=== PATIENT | male | born 1965 | race Two or more races ===

== ENCOUNTER 2024-12-18 19:22 | Emergency (ER) | payer MEDICAID, SELFPAY ==
[2024-12-18 19:23] VITALS: BMI 35.5
[2024-12-18 19:33] VITALS: BP 173/91; PULSE 72; RESP 20; TEMP 37.3; O2SAT 98
--- NOTE | 2024-12-18 19:45 | PD.EDABDPN ---
ED Abdominal Pain RME/HPI General Chief Complaint: Abdominal Pain Stated complaint: RLQ PAIN Time seen by provider: 12/18/24 19:32 Arrival date/time: 12/18/24 19:22 RME / HPI RME / HPI narrative: This section includes all my notes and documentations, including HPI, PE, and ED course. Davian Obrien MD HPI: 59 y/o male with Hx of nephrolithiasis presents to ED c/o of RLQ abdominal pain x approximately 24 hours. Also reports nausea. Denies any abdominal surgical history. Has tried Naproxen to manage pain once with no relief. No other complaints. ROS: All negative except as documented in HPI. Physical Exam: General: Alert and oriented. In obvious pain. Eyes: Conjunctivae and lids clear. ENT: No nasal congestion. Neck: Supple. Heart: RRR. Lungs: No respiratory distress. Good air movement. No rhonchi, wheezing, rales. Abdomen: Soft and nontender. Normal bowel sounds. No distension. Back: No CVA tenderness. Skin: Warm and dry. Neuro: Alert and oriented X 3. I reviewed all diagnostic test results. My review of the CT report is 5 mm distal right ureterovesical calculus. Blood tests and urine tests remarkable for hematuria. At this point, diagnoses include right ureteral stone. Treatment here included IV fluid, Toradol, Morphine, Zofran, Flomax, and urine strainer. Significant improvement noted. Recommended a trial of outpatient treatment. Based on my best medical judgment, made decision no further evaluation or treatment indicated at this time. Patient understands and agrees to the discharge instructions customized and printed, see below. Discharge Instructions from Dr. Obrien: --Your symptoms are due to a 5 mm right kidney stone. It is outside the kidney. It is trying to pass into your bladder. --Increase oral fluid to flush your kidneys.? Maintain clear urine. if it's dark or yellow then increase oral fluid.? If you don't do this, you won't pass it.? --Take Flomax to help decrease spasms to increase the chance of passing it.? --Take Zofran as needed for nausea or vomiting. --Take Ketorolac/Toradol for pain control.? And Tylenol with Codeine.? If you are in severe pain, you won't pass it.?? --Strain your urine so you can catch the stone when you pass it.? --See a private doctor on 12/21/2024 for recheck. Take the stone with you for analysis because certain stones can be prevented.? If you didn't pass it, ask for referral to see urologist. Who will take the stone out for you. --Seek immediate medical care with fever over 100.4, persistent vomiting despite Zofran, intolerable pain, or with any concerns.?? Davian Obrien MD Related Data Previous Rx's ?Medication ?Instructions ?Recorded ibuprofen 800 mg tablet 800 mg PO TID PRN pain #30 tabs 12/04/17 acetaminophen 300 mg-codeine 30 mg 2 tab PO Q8H PRN pain #20 tabs 12/18/24 tablet ketorolac 10 mg tablet 10 mg PO Q8H PRN pain 5 days #10 12/18/24 tabs ondansetron 4 mg disintegrating 4 mg PO TID PRN nausea and 12/18/24 tablet vomiting 30 days #10 tabs tamsulosin 0.4 mg capsule (Flomax) 0.4 mg PO QDAY 7 days #7 caps 12/18/24 Allergies Allergy/AdvReac Type Severity Reaction Status Date / Time No Known Allergies Allergy Verified 12/04/17 15:52 Review of Systems Review of Systems Systems Reviewed: All systems reviewed, normal except as documented Narrative Review of Systems: Refer to HPI above. Past Medical History Past Medical History GENITOURINARY: Positive Kidney Stones Social History SMOKING STATUS: Never smoker ED Exam Narrative Physical exam: Refer to HPI above. Course Quality Measures none Orders Category Date Time Status Miscellaneous Nursing Order NOW Care 12/18/24 21:24 Completed Saline [Insert IV] NOW Care 12/18/24 19:47 Completed Straight [In and Out Catheter] X1 Care 12/18/24 19:[address] abdomen pelvis wo con Stat Exams 12/18/24 19:48 Completed Amylase Stat Lab 12/18/24 19:57 Completed Bilirubin,Direct Stat Lab 12/18/24 19:57 Completed CBC Stat Lab 12/18/24 19:57 Completed CMP [Comprehensive Metabolic Panel] Stat Lab 12/18/24 19:57 Completed Lipase Stat Lab 12/18/24 19:57 Completed Magnesium Stat Lab 12/18/24 19:57 Completed UA, C/S IF [Urinalysis, C/S if Indicated] Stat Lab 12/18/24 20:50 Completed Ketorolac Inj [Toradol Inj] Med 12/18/24 19:47 Discontinued 15 mg IVP X1 ONE Morphine Inj Med 12/18/24 19:47 Discontinued 6 mg IVP X1 ONE Ondansetron Inj [Zofran Inj] Med 12/18/24 19:47 Discontinued 4 mg IV X1 ONE Sodium Chloride 0.9% 1000 ml [Ns] 1,000 ml Med 12/18/24 19:47 Discontinued IV 999 mls/hr Tamsulosin HCl [Flomax] Med 12/18/24 21:24 Discontinued 0.4 mg PO X1 ONE Vital Signs Vital signs: Vital Signs Temperature 99.1 F 12/18/24 19:33 Pulse Rate 72 12/18/24 19:33 Respiratory Rate 20 12/18/24 19:33 Blood Pressure 173/91 H 12/18/24 19:33 Pulse Oximetry (%) 98 12/18/24 19:33 Oxygen Delivery Method Room Air 12/18/24 19:33 Abdominal Pain MDM MDM Narrative MDM Narrative:: Scribe Attestation: IMaryanne am scribing for and in the presence of Dr. Obrien. Provider Notation: Although this document has been carefully reviewed, there may still be some phonetic and other typographical errors. These errors are purely grammatical due to imperfections in the software program and should not be construed in any way to compromise the substance of the patient's medical care during this visit. 59 y/o male with Hx of nephrolithiasis presents to ED c/o of RLQ abdominal pain x approximately 24 hours. Also reports nausea. Denies any abdominal surgical history. Has tried Naproxen to manage pain once with no relief. Patient data External records reviewed:: [facility] previous records (No recent ED records to review.) Clinical information provided by:: patient Social determinants that could affect healthcare access:: none Patient has the following chronic illnesses:: nephrolithiasis How is presenting disease/condition affected by chronic disease/condition?: exacerbated by Evaluation data The following diagnostics were reviewed and interpreted by me:: lab results and radiology exam(s) Lab and/or radiology exams considered but not ordered:: None Interpretation Summary: Abdominopelvis CT shows Mild right hydronephrosis secondary to 5 mm distal right ureterovesical calculus. Medications / Prescriptions Medications or Prescriptions considered but not ordered:: None Medication administrations:: Medication Administration History Discontinued Medications Sodium Chloride (Ns) 1,000 mls @ 999 mls/hr IV .Q1H1M ONE Stop: 12/18/24 20:47 Last Infusion: 12/18/24 22:00 Dose: Infused Documented By: Admin: 12/18/24 20:08 Dose: 999 mls/hr Documented By: EF Ketorolac Tromethamine (Ketorolac Inj 30 Mg/Ml Vial) 15 mg IVP X1 ONE Stop: 12/18/24 19:48 Last Admin: 12/18/24 20:08 Dose: 15 mg Documented By: EF Morphine Sulfate (Morphine Sulf Inj 10 Mg/Ml Vial) 6 mg IVP X1 ONE Stop: 12/18/24 19:48 Last Admin: 12/18/24 20:09 Dose: 6 mg Documented By: EF Ondansetron HCl (Ondansetron Inj 2 Mg/Ml Inj 2 Ml) 4 mg IV X1 ONE; Protocol Stop: 12/18/24 19:48 Last Admin: 12/18/24 20:09 Dose: 4 mg Documented By: EF Tamsulosin HCl (Tamsulosin Hcl 0.4 Mg Capsule) 0.4 mg PO X1 ONE Stop: 12/18/24 21:25 Last Admin: 12/18/24 22:08 Dose: 0.4 mg Documented By: MD [place], Sodium Chloride (Ns), Morphine, Toradol, Tamsulosin HCl Consultations Consultation(s) initiated? (list below): No Diagnosis Differential diagnosis abdominal pain: abdominal pain, acute appendicitis, calculus of kidney, constipation, diverticulitis, gastroenteritis, pancreatitis, small bowel obstruction and other (UTI, pyelonephritis, ureteral stone) Most likely diagnosis given after review of the tests above:: Kidney stone Admission Indicated Admission indicated?: not indicated Explain why admission is indicated or not indicated:: With significant improvement, there was no indication for admission. Admission Request Was there a request for admission?: No Disposition Plan Disposition Plan: Discharge Discharge Attestation Discharge Attestation: The patient and all family members were given an opportunity to ask questions and understood the discharge instructions. Discharge instructions specifically effects, indications for sooner follow up or return to the emergency department, and the expected course of current diagnosis. Patient condition: Stable Discharge Plan Plan Patient Disposition: HOME (Self Care) Prescriptions/Referrals Prescriptions/Med Rec: New acetaminophen-codeine 300-30 mg tablet 2 tab PO Q8H MDD 6 PRN (Reason: pain) Qty: 20 0RF ketorolac 10 mg tablet 10 mg PO Q8H PRN (Reason: pain) 5 Days Qty: 10 0RF tamsulosin [Flomax] 0.4 mg capsule 0.4 mg PO QDAY 7 Days Qty: 7 0RF ondansetron 4 mg tablet,disintegrating 4 mg PO TID PRN (Reason: nausea and vomiting) 30 Days Qty: 10 0RF No Action ibuprofen 800 mg tablet 800 mg PO TID PRN (Reason: pain) Qty: 30 0RF Referrals: No Primary/Family,Physician [Primary Care Provider] - In 1 week Problem List Clinical Impression: Kidney stone Patient/Caregiver Discharge Instructions Discharge Activity: activity as tolerated Education Materials: ED Kidney Stone w/ Colic Additional Instructions: Discharge Instructions from Dr. Obrien: --Your symptoms are due to a 5 mm right kidney stone. It is outside the kidney. It is trying to pass into your bladder. --Increase oral fluid to flush your kidneys.? Maintain clear urine. if it's dark or yellow then increase oral fluid.? If you don't do this, you won't pass it.? --Take Flomax to help decrease spasms to increase the chance of passing it.? --Take Zofran as needed for nausea or vomiting. --Take Ketorolac/Toradol for pain control.? And Tylenol with Codeine.? If you are in severe pain, you won't pass it.?? --Strain your urine so you can catch the stone when you pass it.? --See a private doctor on 12/21/2024 for recheck. Take the stone with you for analysis because certain stones can be prevented.? If you didn't pass it, ask for referral to see urologist. Who will take the stone out for you. --Seek immediate medical care with fever over 100.4, persistent vomiting despite Zofran, intolerable pain, or with any concerns.?? Instrucciones de javid del Dr. Obrien: --Sita s?ntomas se deben a un c?lculo renal derecho de 5 mm. Se encuentra fuera del ri??n y est? intentando pasar a la vejiga. --Aumente la ingesta de l?quidos para limpiar los ri?ones. Mantenga la orina maggie. Si es oscura o amarilla, aumente la ingesta de l?quidos. Si no lo hace, no podr? expulsarlo. --[place] Flomax para ayudar a disminuir los espasmos y aumentar la probabilidad de expulsarlo. --[place] Zofran seg?n sea necesario para las n?useas o los v?mitos. --[place] Ketorolaco/Toradol para controlar el dolor y Tylenol con code?na. Si tiene dolor intenso, no podr? expulsarlo. --Cuela la orina para que pueda atrapar el c?lculo al expulsarlo. --Consulte con un m?dico particular el 21/12/2024 para avtar segunda revisi?n. Lleve el c?lculo para que lo analicen, ya que algunos c?lculos se pueden prevenir. Si no lo cronin aprobado, solicite avtar derivaci?n a un ur?logo. ?l le extraer? el c?lculo. --Busque atenci?n m?dica inmediata si tiene fiebre superior a 38 ?C, v?mitos persistentes a pesar del Zofran, dolor insoportable o cualquier otra inquietud. Print Language: Argentine Stand Alone Forms: Nydia Award Info., Patient Portal Info Letter
--- NOTE | 2024-12-18 19:48 | XR_ITS ---
Examination: CT abdomen and pelvis without contrast. Coronal 3-D reconstructions. Sagittal 2-D reconstructions. Date and time of exam:December 18, 20247 hrs. Comparison 05/22/2013 Indications: Sharp right-sided abdominal pain beginning 2 days ago CTDI: vol (mGy): 13 DLP: (mGycm): 970 Technique: Axial images of the abdomen have been obtained, 3 mm slice thickness Intravenous contrast material has not been administered. Low dose protocols were performed. One or more of the following dose reduction techniques were used; automated exposure control, adjustment of the mA and/or KV according to patient size, use of iterative reconstruction technique. Findings: Diffuse fatty infiltration throughout the liver No gallstones Spleen not enlarged No pancreatic mass Perinephric stranding Bilateral 1-2 mm renal calculi Mild right hydronephrosis secondary to 5 mm distal right ureterovesical junction calculus Normal appendix No bowel obstruction Minimal thickening of urinary bladder wall anteriorly up to 4 mm Impression: Mild right hydronephrosis secondary to 5 mm distal right ureterovesical calculus
[2024-12-18 20:06] LABS: Basophils % (Auto) 0 % (0-2.5); Eosinophils # (Auto) 0.1 Thou/mm3 (0.0-0.5); Eosinophils % (Auto) 1 % (0-10); Hematocrit 41.6 % (41.0-53.0); Immature Granulocytes % (Auto) 0 % (0-0); Immature Granulocytes Auto 0.01 Thou/mm3 (0.00-0.00); Lymphocytes # (Auto) 2.4 Thou/mm3 (1.0-4.8); Lymphocytes % (Auto) 26 % (10-50); Mean Corpuscular HGB Conc 33.7 g/dl (31.0-37.0); Mean Corpuscular Volume 86 fL (80-100); Monocytes # (Auto) 0.7 Thou/mm3 (0.0-0.8); Monocytes % (Auto) 8 % (0-12); Neutrophils % (Auto) 65 % (37-80); Nucleated Red Blood Cell % 0 /100 WBC (0); Platelet Count 258 Thou/mm3 (140-440); RDW Standard Deviation 42.9 fL (35.1-43.9); Red Blood Count 4.83 Miln/mm3 (4.50-5.90); White Blood Count 9.3 Thou/mm3 (3.8-10.6)
[2024-12-18] MEDS: SODIUM CHLORIDE 0.9% 1000 ML 1,000 ML 999 ML IV (20:08)
[2024-12-18] MEDS: KETOROLAC INJ 30 MG/ML VIAL 15 MG IVP (20:08)
[2024-12-18] MEDS: ONDANSETRON INJ 2 MG/ML INJ 2 ML 4 MG IV (20:09)
[2024-12-18] MEDS: MORPHINE SULF INJ 10 MG/ML VIAL 6 MG IVP (20:09)
[2024-12-18 20:39] LABS: Alanine Aminotransferase 14 U/L (10-49); Albumin, Serum 4.4 gm/dL (3.4-4.8); Albumin/Globulin Ratio 1.3 (1.2-2.2); Alkaline Phosphatase 87 U/L (46-116); Anion Gap 9 (7-16); Aspartate Amino Transferase 19 U/L (0-34); BUN/Creatinine Ratio 13 Ratio (12-20); Bilirubin,Direct 0.2 mg/dL (0.0-0.3); Bilirubin,Total 0.7 mg/dL (0.3-1.2); Blood Urea Nitrogen 14 mg/dL (9-23); Calcium 9.2 mg/dL (8.3-10.6); Calcium (Corrected) 9.2 mg/dL (8.5-10.1); Carbon Dioxide 23.3 mMol/L (20.0-31.0); Chloride 108 mMol/L (98-107); Creatinine (Component) 1.1 mg/dL (0.6-1.3); Globulin 3.5 gm/dL (2.3-3.5); Glucose 108 mg/dL (74-106); Lipase 32 U/L (12-53); Osmolality,Calculated 280 (275-295); Potassium 3.9 mMol/L (3.4-5.1); Sodium 140 mMol/L (136-145); Total Protein 7.9 gm/dL (5.7-8.2); eGFR > 60 See Note
[2024-12-18 20:52] LABS: Amylase 75 U/L (30-118)
[2024-12-18 20:57] LABS: Collection Type, Urine Clean Catch; Squamous Epithelial Cell,Urine 0 /hpf (0-5)
[2024-12-18 21:01] LABS: Bilirubin,Urine Negative (Negative); Blood,Urine 3+ (Negative); Clarity,Urine Clear (Clear/Hazy); Color,Urine Lt-Yellow (Lt Yel-Yel); Culture Indicated,Urine Not Indicated; Glucose, Urine Negative (Negative); Ketones,Urine Negative (Negative); Leukocyte Esterase,Urine Negative (Negative); Nitrite,Urine Negative (Negative); Protein,Urine Negative (Neg - Trace); RBC,Urine 76 /hpf (0-3); Specific Gravity,Urine 1.016 (1.001-1.035); Urobilinogen,Urine Negative mg/dL (0.0-1.0); WBC,Urine 5 /hpf (0-5)
[2024-12-18] MEDS: TAMSULOSIN HCL 0.4 MG CAPSULE PO (22:08)
== END 2024-12-18 22:18 | disposition home or self-care (01) ==
PROVIDERS: Emergency Provider Emergency Medicine
DX: N13.2 Hydronephrosis with renal and ureteral calculous obstruction (principal)
CPT/HCPCS: 36415; 74176; 80053; 81001; 82150; 82248; 83690; 83735; 85025; 96361; 96374; 96375; 99284; J1885; J2270; J2405; J7030; A9270